=== PATIENT | male | born 1940 | race Caucasian/White ===

== ENCOUNTER 2018-10-21 15:42 | Outpatient (CLI) | payer MEDICARE, OTHER ==
--- NOTE | 2018-10-21 16:16 | RAD ---
Exam: 2views of the lumbosacral spine HISTORY: Low back pain and hip pain COMPARISON: CT the abdomen and pelvis dated 04/26/2016 FINDINGS: There are 5 lumbar-type vertebra. No acute fracture or subluxation. There is grade 1 anterolisthesis of L3 on L4. There is solid ankylosis of the intervertebral disc spa ce at L4-5. There is prominent disc degenerative disease at L5-S1, L1-2 and L2-3. 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 There is grade 1 anterolisthesis of L3 on L4. There is autofusion of L4-5 intervertebral disc space.
== END 2018-10-21 15:43 | disposition home or self-care (01) ==
LOC: BICRAD 15:42
PROVIDERS: ATTEND Physical Medicine & Rehabilitation
DX: M54.9 Dorsalgia, unspecified (principal); M25.559 Pain in unspecified hip; M47.816 Spondylosis without myelopathy or radiculopathy, lumbar region; Z98.1 Arthrodesis status
CPT/HCPCS: 72100

== ENCOUNTER 2020-07-26 19:46 | Emergency (ER) | payer MEDICARE ==
--- NOTE | 2020-07-26 20:45 | CT ---
CT HEAD WITHOUT IV CONTRAST COMPARISON: None HISTORY: Injury after hitting head. Complains of head and neck pain. TECHNIQUE: Axial CT imaging at 5 mm intervals from vertex through skull base without contrast FINDINGS: Mild cerebral volume loss is present not unexpected for patient's age. There is no evidence of an acu te infarction, hemorrhage, mass effect, or midline shift. The ventricular system is normal in size, shape, and position. Postoperative changes related to right mastoidectomy are seen. Minimal mucosal thickening is seen in a few bilateral ethmoidal air cells. Osseous structures appear intact.No depressed calvarial fracture is seen. IMPRESSION: 1. No acute intracranial abnormality demonstrated.
[2020-07-26] MEDS ORDERED: Cyclobenzaprine 10 MG TAB ONE ×2 (21:03→21:05)
[2020-07-26] MEDS ORDERED: Ketorolac Tromethamine 30 MG/ML VIAL ONE (21:03)
--- NOTE | 2020-07-26 21:16 | CT ---
CT OF CERVICAL SPINE PERFORMED WITHOUT CONTRAST ENHANCEMENT: 07/26/20 HISTORY: Neck injury. The vertebral bodies are normal in height. Degenerative disc narrowing is seen at C5-6 and C6-7. Mini mal anterolisthesis of C5 on C6. Moderate degenerative facet changes. The facets do appear to be in n ormal alignment. At C3-4, there is fairly pronounced right sided foraminal narrowing and mild left foraminal stenosis. There is bilateral foraminal narrowing which is mild to moderate at the C4-5 level and moderate righ t sided foraminal narrowing at C5-6 and mild left sided foraminal narrowing at C6-7. There is no CT e vidence for fracture. Lung apices are clear. IMPRESSION: Marked arthritic changes of the spine. No CT evidence of fracture. POS: [facility]IS[facility]
== END 2020-07-26 21:15 | disposition home or self-care (01) ==
LOC: ERS 19:46
DX: M54.2 Cervicalgia (principal); E03.9 Hypothyroidism, unspecified; I10 Essential (primary) hypertension; Z79.899 Other long term (current) drug therapy; W22.8XXA Striking against or struck by other objects, initial encounter
CPT/HCPCS: 70450; 72125; 96372; J1885

== ENCOUNTER 2020-08-09 16:50 | Emergency (ER) | payer MEDICARE ==
--- NOTE | 2020-08-09 19:00 | RAD ---
Chest one view HISTORY: Chest pain. COMPARISON: 07/11/2011. FINDINGS: The cardiac silhouette and pulmonary vasculature are unremarkable. Mediastinum is midline. No confluent airspace consolidation or evidence of pneumothorax. IMPRESSION : No abnormalities are demonstrated.
--- NOTE | 2020-08-09 19:02 | RAD ---
Cervical spine 3 views HISTORY: Neck and left arm pain. COMPARISON: CT cervical spine 07/26/2020. FINDINGS: Vertebral body heights are maintained. Minimal degenerative spondylolisthesis at the C3-4 l evel is similar in appearance to recent CT. Cervicothoracic junction is intact on the frontal view but not well seen on the lateral view. The lateral view shows down to the C6-7 level. Osteophytosis throughout the facets. No acute fracture or dislocation are apparent. There is leftward convex curvature of the lower cervical spine on the frontal view. IMPRESSION : Degenerative changes. No acute abnormalities are demonstrated.
[2020-08-09 19:03] LABS: #Basophils 0.1 thou/uL (0.0-0.2); #Eosinphils 0.2 thou/uL (0.0-0.7); #Lymphocytes 2.2 thou/uL (1.20-3.40); #Monocytes 0.9 thou/uL (0.11-0.59); #Neutrophils 6.3 thou/uL (1.40-6.50); %Eosinophils 1.8 % (0.0-10.0); %Lymphocytes 22.9 % (21.0-51.0); %Neutrophils 65.3 % (42.0-75.0); Hemoglobin 15.9 g/dL (14.0-18.0); Mean Corpuscular HGB CONC 32.5 g/dL (32.0-36.0); Mean Corpuscular Hemoglobin 30.3 pg (27.0-31.0); Mean Corpuscular Volume 93.2 fL (78.0-98.0); Mean Platelet Volume 7.5 fL (7.4-10.4); Platelet Count 187 thou/uL (130-400); Red Blood Cell (RBC) Count 5.25 mill/uL (4.70-6.10); White Blood Cell (WBC) Count 9.7 thou/uL (4.8-10.8)
[2020-08-09 19:25] LABS: ALT (SGPT) 18 U/L (8-55); AST (SGOT) 23 U/L (5-34); Albumin 4.7 g/dL (3.4-4.8); Alkaline Phosphatase 100 U/L (40-110); Anion Gap 15 mmol/L (10-20); BUN (Urea Nitrogen) 23 mg/dL (8.4-25.7); Bilirubin, Total 0.5 mg/dL (0.2-1.2); Calc. Creatinine Clearance 0 mL/min (70-130); Calcium 9.7 mg/dL (7.8-10.44); Carbon Dioxide 25 mmol/L (23-31); Chloride 106 mmol/L (98-107); Globulin 2.5 g/dL (2.4-3.5); Glucose 100 mg/dL (83-110); Protein, Total 7.2 g/dL (5.8-8.1); Sodium 141 mmol/L (136-145)
--- NOTE | 2020-08-13 15:55 | EKG ---
Test Reason : Blood Pressure : / mmHG Vent. Rate : 080 BPM Atrial Rate : 080 BPM P-R Int : 192 ms QRS Dur : 122 ms QT Int : 384 ms P-R-T Axes : 027 -53 021 degrees QTc Int : 442 ms Normal sinus rhythm Left axis deviation Right bundle branch block Inferior infarct , age undetermined Abnormal ECG Confirmed by YASSINE DIOP ([id number]), science editor JERRY CHEN ([id number]) on 08/13/2020 3:55:05 PM Referred By: Confirmed By:YASSINE DIOP
== END 2020-08-10 02:48 | disposition home or self-care (01) ==
LOC: ERS 16:50
DX: M25.512 Pain in left shoulder (principal); R60.0 Localized edema; E03.9 Hypothyroidism, unspecified; I10 Essential (primary) hypertension; Z79.899 Other long term (current) drug therapy
CPT/HCPCS: 36415; 71045; 72040; 80053; 84484; 85025; 93005

== ENCOUNTER 2022-01-01 17:38 | Emergency (ER) | payer MEDICARE, OTHER ==
[2022-01-01 18:25] LABS: #Eosinphils 0.1 thou/uL (0.0-0.7); #Lymphocytes 1.9 thou/uL (1.20-3.40); #Monocytes 0.8 thou/uL (0.11-0.59); #Neutrophils 4.2 thou/uL (1.40-6.50); %Basophils 0.2 % (0.0-1.0); %Eosinophils 0.8 % (0.0-10.0); %Lymphocytes 27.9 % (21.0-51.0); %Monocytes 10.9 % (0.0-10.0); %Neutrophils 60.2 % (42.0-75.0); Mean Corpuscular HGB CONC 31.2 g/dL (32.0-36.0); Mean Corpuscular Hemoglobin 29.6 pg (27.0-31.0); Mean Corpuscular Volume 94.9 fL (78.0-98.0); Mean Platelet Volume 7.9 fL (7.4-10.4); Platelet Count 138 thou/uL (130-400)
[2022-01-01 18:49] LABS: ALT (SGPT) 30 U/L (8-55); AST (SGOT) 29 U/L (5-34); Alkaline Phosphatase 112 U/L (40-110); Anion Gap 15 mmol/L (10-20); BUN (Urea Nitrogen) 21 mg/dL (8.4-25.7); Bilirubin, Total 0.5 mg/dL (0.2-1.2); Calc. Creatinine Clearance 0 mL/min (70-130); Calcium 9.6 mg/dL (7.8-10.44); Carbon Dioxide 23 mmol/L (23-31); Chloride 103 mmol/L (98-107); Estimated GFR 81; Globulin 3.1 g/dL (2.4-3.5); Glucose 102 mg/dL (83-110); Potassium 4.3 mmol/L (3.5-5.1); Protein, Total 7.1 g/dL (5.8-8.1); Sodium 137 mmol/L (136-145)
== END 2022-01-01 20:54 | disposition home or self-care (01) ==
LOC: ERS 17:38
DX: L03.115 Cellulitis of right lower limb (principal); Z87.891 Personal history of nicotine dependence; I10 Essential (primary) hypertension; E03.9 Hypothyroidism, unspecified; Z79.899 Other long term (current) drug therapy
CPT/HCPCS: 80053; 83605; 85025; 85379

== ENCOUNTER 2022-09-18 08:53 | Emergency (ER) | payer MEDICARE, OTHER ==
[2022-09-18 09:32] LABS: #Basophils 0.1 thou/uL (0.0-0.2); #Eosinphils 0.2 thou/uL (0.0-0.7); #Lymphocytes 1.5 thou/uL (1.20-3.40); #Monocytes 0.6 thou/uL (0.11-0.59); #Neutrophils 3.7 thou/uL (1.40-6.50); %Basophils 1.1 % (0.0-1.0); %Eosinophils 3.4 % (0.0-10.0); %Lymphocytes 24.7 % (21.0-51.0); %Monocytes 10.1 % (0.0-10.0); %Neutrophils 60.7 % (42.0-75.0); Hemoglobin 14.8 g/dL (14.0-18.0); Mean Corpuscular HGB CONC 32.8 g/dL (32.0-36.0); Mean Corpuscular Volume 97.5 fl (78.0-98.0); Mean Platelet Volume 7.5 fL (7.4-10.4); Platelet Count 164 10x3/uL (130-400); RBC Distribution Width 13.3 % (11.5-14.5); Red Blood Cell (RBC) Count 4.64 mill/uL (4.70-6.10); White Blood Cell (WBC) Count 6.2 10x3/uL (4.8-10.8)
[2022-09-18 10:01] LABS: ALT (SGPT) 16 U/L (8-55); AST (SGOT) 19 U/L (5-34); Albumin 4.2 g/dL (3.4-4.8); Alkaline Phosphatase 91 U/L (40-110); Anion Gap 13 mmol/L (10-20); BUN (Urea Nitrogen) 17 mg/dL (8.4-25.7); Bilirubin, Total 0.5 mg/dL (0.2-1.2); Calc. Creatinine Clearance 0 mL/min (70-130); Calcium 9.9 mg/dL (7.8-10.44); Carbon Dioxide 25 mmol/L (23-31); Chloride 107 mmol/L (98-107); Estimated GFR 68; Globulin 2.7 g/dL (2.4-3.5); Glucose 77 mg/dL (83-110); Potassium 4.7 mmol/L (3.5-5.1); Protein, Total 6.9 g/dL (5.8-8.1); Sodium 140 mmol/L (136-145)
== END 2022-09-18 10:33 | disposition home or self-care (01) ==
LOC: ERS 08:53
DX: I10 Essential (primary) hypertension (principal); E03.9 Hypothyroidism, unspecified; Z87.891 Personal history of nicotine dependence; Z79.899 Other long term (current) drug therapy
CPT/HCPCS: 36415; 80053; 84484; 85025; 93005